=== PATIENT | male | born 1990 | race Two or more races ===

== ENCOUNTER 2017-02-07 15:52 | Emergency (ER) | payer OTHER, BC ==
[2017-02-07 16:15] VITALS: BP 131/87; PULSE 103; TEMP 98.3; BMI 35.9
[2017-02-07] MEDS ORDERED: CYCLOBENZAPRINE HCL 10 MG TABLET (FP) ONE (17:46)
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
== END 2017-02-07 17:57 | disposition home or self-care (01) ==
LOC: JERFT 15:52
DX: S39.012A Strain of muscle, fascia and tendon of lower back, initial encounter (principal); X50.0XXA Overexertion from strenuous movement or load, initial encounter; Y92.61 Building [any] under construction as the place of occurrence of the external cause; Y99.0 Civilian activity done for income or pay; X02.0XXA Exposure to flames in controlled fire in building or structure, initial encounter
CPT/HCPCS: 99281-25